=== PATIENT | male | born 1995 | race Caucasian/White ===

== ENCOUNTER → 2018-04-19 | Outpatient (CLI) | payer OTHER ==
[~2018-04-19] MED LIST: METHACHOLINE KIT (J7674) INH ONE
--- NOTE | 2018-04-19 14:07 | PFTRPT ---
Height: 72.00 Inches Weight: 183.00 Lbs BSA: 2.05 Diagnosis: R07.89 DATE OF PROCEDURE: 04/19/2018 ORDERED BY: Sharon Mayes Spirometry: Study of excellent technical quality. Forced vital capacity normal. FEV1 in proportion. Obstructive index is, therefore, normal. Flow Volume Loop: Expiratory limb of the flow volume loop is normal. Lung Volumes: Total lung capacity normal. Residual volume in proportion. Diffusing Capacity: Diffusing capacity normal. Hemoglobin: Hemoglobin acceptable at 14.8. Airway Mechanics: Airway resistance and conductance are normal. IMPRESSION: Normal study. MTDD
--- NOTE | 2018-04-19 14:08 | PFTRPT ---
Height: 72.00 Inches Weight: 183.00 Lbs BSA: 2.05 Diagnosis: J45.909 DATE OF PROCEDURE: 04/19/2018 ORDERED BY: Sharon Mayes INTERPRETATION: Study of excellent technical quality. Under protocol, methacholine was administered. Even after a maximal dose of 25 mg (188.875 CDUs), no provocation dose ever achieved. IMPRESSION: Negative methacholine challenge study. MTDD
== END ==
LOC: M CARPUL 12:25
PROVIDERS: ATTEND Nurse Practitioner Adult Health
DX: R07.89 Other chest pain (principal); J45.909 Unspecified asthma, uncomplicated
CPT/HCPCS: 36415; 85018; 94060; 94070; 94726; 94729; J7674